=== PATIENT | male | born 1935 | race Caucasian/White ===

== ENCOUNTER 2016-12-15 14:07 | Inpatient (IN) ==
[2016-12-15] MEDS ORDERED: NS 3,000 ML ONE (14:30)
[2016-12-15] MEDS ORDERED: CARDIZEM ONE (14:32)
[2016-12-15 14:50] LABS: BASO% 0.4 % (0.0-0.8); EOS# 0.19 X1000 (0.0-0.7); EOS% 1.4 % (0.0-10.0); HEMATOCRIT 38.5 % (42.0-52.0); HEMOGLOBIN 12.8 g/dL (14.0-18.0); IMM GRAN# 0.05 X1000 (0.0-0.04); IMM GRAN% 0.4 % (0.0-0.5); LYMPH# 1.13 X1000 (1.2-3.4); LYMPH% 8.4 % (20.5-51.1); MANUAL DIFF NEEDED? NO; MCH 32.7 PG (27-31); MCHC 33.2 g/dL (33-37); MCV 98.5 FL (81-99); MONO# 0.92 X1000 (0.11-0.59); MONO% 6.8 % (1.7-9.3); NEUT% 82.6 % (42.2-75.2); PLT 314 X1000 (130-400); RBC 3.91 XMIL (4.7-6.1)
--- NOTE | 2016-12-15 14:52 | Diag Imaging Result Document ---
PROCEDURE NAME: HEAD W/O CONTRAST - 12/15/2016 CT BRAIN WITHOUT CONTRAST. TECHNIQUE: Dose reduction protocol. FINDINGS: No parenchymal hemorrhage. No epidural or subdural hematoma. No subarachnoid hemorrhage. Old left parietal infarct. There is atrophy with chronic microvascular ischemic changes. No mass identified on this noncontrasted exam. No sinus opacification. IMPRESSION: 1. No hemorrhage. 2. Atrophy with chronic microvascular ischemic changes with an old left parietal infarct. A preliminary report was given at 2:24 p.m.
[2016-12-15 15:00] LABS: INR 1.03; PROTIME 10.8 Seconds (9.2-11.7); PTT 23.3 Seconds (22.0-36.0)
[2016-12-15 15:15] LABS: AGAP 20; ALBUMIN 3.7 g/dL (3.5-5.0); ALKALINE PHOSPHATASE 63 U/L (32-122); BUN 11 mg/dL (8-22); CALCIUM 8.9 mg/dL (8.8-10.2); CHLORIDE 99 mmol/L (98-107); CK PROFILE 66 U/L (24-204); COSMO 286; DIRECT BILIRUBIN < 0.20 mg/dL (0.00-0.20); GOT 32 U/L (10-34); GPT 16 U/L (10-44); POTASSIUM 3.6 mmol/L (3.5-5.1); SODIUM 143 mmol/L (136-145); TCO2 24 mmol/L (25-35); TOTAL BILIRUBIN 0.26 mg/dL (0.20-1.00)
[2016-12-15 15:31] LABS: URINE MICRO REVIEW NEEDED? NO; URINE SOURCE CATH
[2016-12-15 15:37] LABS: BILIRUBIN URINE NEGATIVE (NEGATIVE); BLOOD URINE NEGATIVE (NEGATIVE); COLOR YELLOW; GLUCOSE URINE NEGATIVE (NEGATIVE); LEUKOCYTES URINE NEGATIVE (NEGATIVE); NITRITE URINE NEGATIVE (NEGATIVE); PROTEIN URINE 30 mg/dL (NEGATIVE); SP GRAVITY URINE 1.014; TURBIDITY URINE CLEAR (CLEAR); UR EPITHELIAL CELLS <10 /HPF (<10); URINE BACTERIA NEGATIVE /HPF; URINE RBC <10 /HPF (<10); URINE WBC <10 /HPF (<10); UROBILINOGEN URINE NORMAL (NORMAL)
[2016-12-15 15:50] LABS: UR AMPHETAMINES QUAL NONE DETECTED (NONE DETECT); UR BARBITUATES QUAL NONE DETECTED (NONE DETECT); UR BENZODIAZEPIN QUAL NONE DETECTED (NONE DETECT); UR CANNABINOIDS QUAL NONE DETECTED (NONE DETECT); UR COCAINE QUAL NONE DETECTED (NONE DETECT); UR METHADONE QUAL NONE DETECTED (NONE DETECT); UR OPIATES QUAL NONE DETECTED (NONE DETECT); UR OXYCODONE QUAL NONE DETECTED (NONE DETECT); UR PCP QUAL NONE DETECTED (NONE DETECT)
--- NOTE | 2016-12-15 16:15 | Diag Imaging Result Document ---
PROCEDURE NAME: CHEST-PORTABLE - 12/15/2016 PORTABLE CHEST: COMPARISON: No comparison films. FINDINGS: The lungs are well expanded. Heart is not enlarged. The vessels are not distended. No pneumonia. There are bilateral pleural plaques. No pleural effusions identified. Longstanding arthritic changes to each shoulder. IMPRESSION: No acute abnormality.
[2016-12-15] MEDS ORDERED: NS 1,000 ML IV ONE ×2 (16:16→17:13)
[2016-12-15] MEDS ORDERED: NS 500 ML IV ONE (17:13)
[2016-12-15] MEDS ORDERED: LEVAQUIN 750 MG/D5W 750 MG/150 ML IVPB IV ONE (17:18)
[2016-12-15] MEDS ORDERED: VANCOMYCIN 1 GM/NS 1 GM/250 ML IVPB IV ONE (17:18)
--- NOTE | 2016-12-15 17:41 | PROVIDER DOCUMENTATION ---
This chart was entered by Mar Rob Scribe, acting as scribe for Marty Lyman MD. HPI-Respiratory General - General Chief Complaint: Altered Mental Status Stated Complaint: possible CVA Time Seen by Provider: 12/15/16 14:40 Source: patient Allergies/Adverse Reactions: Patient Allergies Allergy/AdvReac Type Severity Reaction Status Date / Time Penicillins Allergy Unknown Verified 12/15/16 17:17 Home Medications: Home Medication List Medication Instructions Recorded Confirmed Last Taken Type Aspirin EC 81 mg PO DAILY 12/15/16 12/15/16 Unknown History Carbamazepine 200 mg PO QHS 12/15/16 12/15/16 Unknown History Carbamazepine 300 mg PO QAM 12/15/16 12/15/16 Unknown History Carvedilol 25 mg PO BID 12/15/16 12/15/16 Unknown History Docusate Sodium 200 mg PO BID 12/15/16 12/15/16 Unknown History Furosemide 40 mg PO DAILY 12/15/16 12/15/16 Unknown History Iron Carbonyl/Ascorbic Acid 1 each PO DAILY 12/15/16 12/15/16 Unknown History [Icar-C] Levothyroxine [Synthroid] 25 microgm PO DAILY 12/15/16 12/15/16 Unknown History Lisinopril 5 mg PO DAILY 12/15/16 12/15/16 Unknown History Multivitamins/Minerals [Centrum 1 each PO DAILY 12/15/16 12/15/16 Unknown History Silver] Pantoprazole [Protonix] 40 mg PO DAILY@0700 12/15/16 12/15/16 Unknown History Pentoxifylline 400 mg PO DAILY 12/15/16 12/15/16 Unknown History Potassium 99 mg PO DAILY 12/15/16 12/15/16 Unknown History Prednisone 20 mg PO BID 12/15/16 12/15/16 Unknown History Simvastatin 40 mg PO DAILY 12/15/16 12/15/16 Unknown History - History of Present Illness-Resp Nature of Presenting Problem: Pt is a 81 yom who came to the ED with a cc of falling out. Pt was working with his family on a side walk when he said "Honey I'm going down" his caught him. Pt was complaining of being short of breath. Pt is now unresponsive. Quality of Pain: reports: none Onset/Duration: reports: just prior to arrival Timing: reports: still present Associated Symptoms: reports: dizziness, short of breath Similar Symptoms Previously?: No Recently seen or treated by another doctor?: No Review of Systems - Adult - REVIEW OF SYSTEMS - ADULT ROS:: unobtainable per condition Constitutional: reports: no symptoms reported Eyes: reports: no symptoms reported Ears, Nose, Mouth & Throat: reports: no symptoms reported Cardiovascular: reports: no symptoms reported Respiratory: reports: no symptoms reported Gastrointestinal: reports: no symptoms reported Genitourinary: reports: no symptoms reported Musculoskeletal: reports: no symptoms reported Integumentary: reports: no symptoms reported Neurological: reports: no symptoms reported Psychiatric: reports: no symptoms reported Endocrine: reports: no symptoms reported Hematologic/Lymphatic: reports: no symptoms reported Allergic/Immunologic: reports: no symptoms reported All Other Systems: Reviewed and Negative Past History - Adult - PAST MEDICAL HISTORY-ADULT Review of Records: reports: Nursing Assessment Review Major Childhood Illnesses: reports: denies history Cardiovascular: reports: CHF, HTN, hyperlipidemia Respiratory: reports: COPD Gastrointestinal: reports: denies history Obstetrical/Gynecological: reports: denies history Genitourinary: reports: denies history Musculoskeletal: reports: denies history 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 Endocrine/Immune: reports: thyroid disorder Other Conditions: reports: denies history - IMMUNIZATION STATUS Childhood Immunizations: See Nurse Assessment Flu Vaccine: See Nurse Assessment - SOCIAL HISTORY Smoking: quit greater than 1 year Physical Exam-General - PHYSICAL EXAM-ADULT Initial Vital Signs Reviewed: Yes - CONSTITUTIONAL General Appearance: obtunded - CARDIOVASCULAR Cardiovascular: normal peripheral pulses, regular rate, rhythm - MUSCULOSKELETAL Extremity: other (unresponsive) - NEUROLOGIC Neurologic: facial droop (right side) Progress - PLAN OF CARE/RESULTS Progress/Plan/Lab Results: Vital Signs - 8 hr 12/15/16 14:41 12/15/16 15:09 12/15/16 16:06 Temperature 97.4 F L Pulse Rate 131 H 107 H Respiratory Rate 18 24 Blood Pressure 107/57 110/63 O2 Sat by Pulse Oximetry 100 97 Laboratory Results - last 24 hr 12/15/16 12/15/16 12/15/16 14:22 14:22 14:22 WBC 13.53 H RBC 3.91 L Hgb 12.8 L Hct 38.5 L MCV 98.5 MCH 32.7 H MCHC 33.2 RDW Std Deviation 15.2 H Plt Count 314 MPV 10.0 Immature Gran % (Auto) 0.4 Neut % (Auto) 82.6 H Lymph % (Auto) 8.4 L [place] % (Auto) 6.8 Eos % (Auto) 1.4 Baso % (Auto) 0.4 Immature Gran # (Auto) 0.05 H Neut # (Auto) 11.18 H Lymph # (Auto) 1.13 L [place] # (Auto) 0.92 H Eos # (Auto) 0.19 Baso # (Auto) 0.06 PT 10.8 INR 1.03 PTT (Actin FS) 23.3 Fibrinogen Sodium Potassium Chloride Carbon Dioxide Anion Gap BUN Creatinine Estimated GFR/1.73 m2 BUN/Creatinine Ratio Glucose Estimat Average Glucose 97 Hemoglobin A1c 5.0 Calculated Osmolality Calcium Total Bilirubin Direct Bilirubin AST ALT Alkaline Phosphatase Creatine Kinase Troponin T Total Protein Albumin Globulin Albumin/Globulin Ratio Triglycerides Cholesterol LDL Cholesterol Direct VLDL Cholesterol, Calc HDL Cholesterol Coronary Risk Interp Plasma Lactate Urine Source Urine Color Urine Turbidity Urine pH Ur Specific Babb Urine Protein Ur Glucose (Stick) Ur Ketones (Stick) Urine Blood Urine Nitrite Urine Bilirubin Urobilinogen Dipstick Urine Leukocytes Urine WBC (Auto) Urine RBC (Auto) U Epithel Cells (Auto) Urine Bacteria (Auto) Urine Opiates Screen Ur Oxycodone Screen Ur Methadone, Qual Ur Barbiturates Screen Ur Phencyclidine Scrn Ur Amphetamines Screen U Benzodiazepines Scrn Urine Cocaine Screen U Cannabinoids Screen Blood Type Antibody Screen 12/15/16 12/15/16 12/15/16 14:22 14:27 14:27 WBC RBC Hgb Hct MCV MCH MCHC RDW Std Deviation Plt Count MPV Immature Gran % (Auto) Neut % (Auto) Lymph % (Auto) [place] % (Auto) Eos % (Auto) Baso % (Auto) Immature Gran # (Auto) Neut # (Auto) Lymph # (Auto) [place] # (Auto) Eos # (Auto) Baso # (Auto) PT INR PTT (Actin FS) Fibrinogen 383.4 Sodium 143 Potassium 3.6 Chloride 99 Carbon Dioxide 24 L Anion Gap 20 BUN 11 Creatinine 1.1 Estimated GFR/1.73 m2 > 60 BUN/Creatinine Ratio 10 Glucose 126 H Estimat Average Glucose Hemoglobin A1c Calculated Osmolality 286 Calcium 8.9 Total Bilirubin 0.26 Direct Bilirubin < 0.20 AST 32 ALT 16 Alkaline Phosphatase 63 Creatine Kinase 66 Troponin T Total Protein 6.0 L Albumin 3.7 Globulin 2.3 Albumin/Globulin Ratio 1.6 Triglycerides Cholesterol LDL Cholesterol Direct VLDL Cholesterol, Calc HDL Cholesterol Coronary Risk Interp Plasma Lactate 3.3 H Urine Source Urine Color Urine Turbidity Urine pH Ur Specific Babb Urine Protein Ur Glucose (Stick) Ur Ketones (Stick) Urine Blood Urine Nitrite Urine Bilirubin Urobilinogen Dipstick Urine Leukocytes Urine WBC (Auto) Urine RBC (Auto) U Epithel Cells (Auto) Urine Bacteria (Auto) Urine Opiates Screen Ur Oxycodone Screen Ur Methadone, Qual Ur Barbiturates Screen Ur Phencyclidine Scrn Ur Amphetamines Screen U Benzodiazepines Scrn Urine Cocaine Screen U Cannabinoids Screen Blood Type Antibody Screen 12/15/16 12/15/16 12/15/16 14:27 14:27 14:32 WBC RBC Hgb Hct MCV MCH MCHC RDW Std Deviation Plt Count MPV Immature Gran % (Auto) Neut % (Auto) Lymph % (Auto) [place] % (Auto) Eos % (Auto) Baso % (Auto) Immature Gran # (Auto) Neut # (Auto) Lymph # (Auto) [place] # (Auto) Eos # (Auto) Baso # (Auto) PT INR PTT (Actin FS) Fibrinogen Sodium Potassium Chloride Carbon Dioxide Anion Gap BUN Creatinine Estimated GFR/1.73 m2 BUN/Creatinine Ratio Glucose Estimat Average Glucose Hemoglobin A1c Calculated Osmolality Calcium Total Bilirubin Direct Bilirubin AST ALT Alkaline Phosphatase Creatine Kinase Troponin T < 0.010 Total Protein Albumin Globulin Albumin/Globulin Ratio Triglycerides 136 Cholesterol 230 H LDL Cholesterol Direct 163 VLDL Cholesterol, Calc 27 HDL Cholesterol 54 Coronary Risk Interp 4.00 Plasma Lactate Urine Source Urine Color Urine Turbidity Urine pH Ur Specific Babb Urine Protein Ur Glucose (Stick) Ur Ketones (Stick) Urine Blood Urine Nitrite Urine Bilirubin Urobilinogen Dipstick Urine Leukocytes Urine WBC (Auto) Urine RBC (Auto) U Epithel Cells (Auto) Urine Bacteria (Auto) Urine Opiates Screen Ur Oxycodone Screen Ur Methadone, Qual Ur Barbiturates Screen Ur Phencyclidine Scrn Ur Amphetamines Screen U Benzodiazepines Scrn Urine Cocaine Screen U Cannabinoids Screen Blood Type O POSITIVE Antibody Screen NEGATIVE 12/15/16 12/15/16 15:30 15:30 WBC RBC Hgb Hct MCV MCH MCHC RDW Std Deviation Plt Count MPV Immature Gran % (Auto) Neut % (Auto) Lymph % (Auto) [place] % (Auto) Eos % (Auto) Baso % (Auto) Immature Gran # (Auto) Neut # (Auto) Lymph # (Auto) [place] # (Auto) Eos # (Auto) Baso # (Auto) PT INR PTT (Actin FS) Fibrinogen Sodium Potassium Chloride Carbon Dioxide Anion Gap BUN Creatinine Estimated GFR/1.73 m2 BUN/Creatinine Ratio Glucose Estimat Average Glucose Hemoglobin A1c Calculated Osmolality Calcium Total Bilirubin Direct Bilirubin AST ALT Alkaline Phosphatase Creatine Kinase Troponin T Total Protein Albumin Globulin Albumin/Globulin Ratio Triglycerides Cholesterol LDL Cholesterol Direct VLDL Cholesterol, Calc HDL Cholesterol Coronary Risk Interp Plasma Lactate Urine Source CATH Urine Color YELLOW Urine Turbidity CLEAR Urine pH 6.0 Ur Specific Babb 1.014 Urine Protein 30 A Ur Glucose (Stick) NEGATIVE Ur Ketones (Stick) NEGATIVE Urine Blood NEGATIVE Urine Nitrite NEGATIVE Urine Bilirubin NEGATIVE Urobilinogen Dipstick NORMAL Urine Leukocytes NEGATIVE Urine WBC (Auto) <10 Urine RBC (Auto) <10 U Epithel Cells (Auto) <10 Urine Bacteria (Auto) NEGATIVE Urine Opiates Screen NONE DETECTED Ur Oxycodone Screen NONE DETECTED Ur Methadone, Qual NONE DETECTED Ur Barbiturates Screen NONE DETECTED Ur Phencyclidine Scrn NONE DETECTED Ur Amphetamines Screen NONE DETECTED U Benzodiazepines Scrn NONE DETECTED Urine Cocaine Screen NONE DETECTED U Cannabinoids Screen NONE DETECTED Blood Type Antibody Screen Orders Category Date Time Status Neurological Check ORDERED Care 12/15/16 14:32 Active CHEST-PORTABLE [RAD] Stat Exams 12/15/16 14:32 Draft HEAD W/O CONTRAST [CT] Stat Exams 12/15/16 14:08 Completed A1C HGB W EST AVG GLUCOSE [CHEM] Stat Lab 12/15/16 14:22 Completed CBC WITH ELECTRONIC DIFF [HEME] Stat Lab 12/15/16 14:22 Completed CK PROFILE [SP CHEM] Stat Lab 12/15/16 14:27 Completed COMPREHENSIVE METABOLIC PANEL [CHEM] Stat Lab 12/15/16 14:27 Completed FIBRINOGEN [COAG] Stat Lab 12/15/16 14:22 Completed HEPATIC FUNCTION [CHEM] Stat Lab 12/15/16 14:27 Completed LACTATE, PLASMA [CHEM] Stat Lab 12/15/16 17:36 Ordered LACTATE, PLASMA [CHEM] Urgent Lab 12/15/16 14:27 Completed LIPID PROFILE W/DIR LDL [LIPIDS] Stat Lab 12/15/16 14:32 Completed PROTIME WITH INR [COAG] Stat Lab 12/15/16 14:22 Completed PTT [COAG] Stat Lab 12/15/16 14:22 Completed TROPONIN T Stat Lab 12/15/16 14:27 Completed TYPE & SCREEN [BBK] Stat Lab 12/15/16 14:27 Completed URINALYSIS [URINALYSIS] Stat Lab 12/15/16 15:30 Completed URINE DRUG SCREEN Stat Lab 12/15/16 15:30 Completed 0.9% Sodium Chloride Inj [Ns] 1,000 ml Med 12/15/16 14:30 Discontinued .ROUTE As Directed 0.9% Sodium Chloride Inj [Ns] 1,000 ml Med 12/15/16 16:16 Discontinued IV 999 mls/hr 0.9% Sodium Chloride Inj [Ns] 1,000 ml Med 12/15/16 17:13 Active IV 999 mls/hr 0.9% Sodium Chloride Inj [Ns] 500 ml Med 12/15/16 17:13 Active IV 999 mls/hr Diltiazem [Cardizem] Med 12/15/16 14:32 Discontinued 25 mg .ROUTE .STK-MED ONE Levofloxacin 750 mg/D5w [Levaquin 750 mg/D5w] Med 12/15/16 17:18 Active 750 mg in 150 ml IV NOW Vancomycin 1 gm/Ns Med 12/15/16 17:18 Active 1 gm in 250 ml IV NOW EKG [EKG] Stat Ther 12/15/16 14:32 Ordered Result Diagrams: 12/15/16 14:22 12/15/16 14:27 - XRAY 1 XRAY Study: Chest (no acute abnormality plural plaques) - CT/MRI 1 MRI Study: Head (no hemorrhage atrophy with chronic microvascular ischemic changes with an old left parietal infarct.) - CONSULTS/PCP/HOSPITALIST Notification #1 *Consult/PCP/Hospitalist*: Dr. Aguero Time Discussed: 17:36 (Dr. Aguero will be the pt PCP) Departure - Departure Time of Disposition Decision: 17:39 DIAGNOSIS: Altered mental status Disposition: ADMITTED INPATIENT 09 Certified Medical Emergency: Emergent Condition: Stable Referrals and Follow-Ups: Mike Green [Primary Care Provider] - Attestation - Physician/ CARLEE Attestation Patient care was provided by Advanced Practice Provider:: Yes Advanced Practice Provider documentation review:: The Mid-level provider documentation, treatment plan and medical decision making was reviewed by the physician who agrees with all treatment and medical decision making by the MLP. The physician spent face to face time with patient:: Yes Advanced Practice Provider documentation review:: The physician spent face to face time with this patient and agrees with all MLP documentation, treatment, and medical decision making by the MLP. See provider notes for further information. This chart was documented by the indicated scribe, (Mar Rob Scribe) and accurately reflects the services I performed and decisions made by Nura kirby Christophe I, MD, as attested by the provider's signature.
[2016-12-15] MEDS ORDERED: ADENOCARD ONE (17:56)
[2016-12-15] MEDS ORDERED: VERSED ONE (18:04)
[2016-12-15] MEDS ORDERED: CORDARONE 150 MG/D5W ONE (18:28)
[2016-12-15] MEDS ORDERED: MAGNESIUM SULFATE ONE (18:28)
[2016-12-15] MEDS ORDERED: CORDARONE ONE (18:28)
[2016-12-15] MEDS ORDERED: CORDARONE 150 MG/D5W 150 MG/100 ML IV.SOLN IV ONE (19:02)
[2016-12-15] MEDS ORDERED: TYLENOL PO PRN (19:02)
[2016-12-15] MEDS ORDERED: CORDARONE 360 MG/D5W 360 MG/200 ML IV.SOLN IV ONE (19:39)
[2016-12-15] MEDS: NS 1,000 ML IV SCH (20:08)
[2016-12-15] MEDS: LOVENOX SUBQ SCH (20:12)
[2016-12-15] MEDS ORDERED: COLACE PO SCH (21:00)
[2016-12-15] MEDS: COREG PO SCH (21:45)
[2016-12-15] MEDS: PREDNISONE PO SCH (21:45)
[2016-12-15] MEDS: TEGRETOL PO SCH (21:45)
[2016-12-16] MEDS ORDERED: CORDARONE 540 MG in D5W 289.2 ML IV ONE (02:00)
[2016-12-16] MEDS: SYNTHROID PO SCH (06:25)
[2016-12-16] MEDS: PROTONIX PO SCH (06:25)
[2016-12-16 06:31] LABS: MANUAL DIFF NEEDED? NO
[2016-12-16 06:59] LABS: AGAP 12; ALBUMIN 2.7 g/dL (3.5-5.0); ALKALINE PHOSPHATASE 52 U/L (32-122); BUN 9 mg/dL (8-22); CALCIUM 7.4 mg/dL (8.8-10.2); CHLORIDE 104 mmol/L (98-107); COSMO 280; GOT 20 U/L (10-34); GPT 14 U/L (10-44); MAGNESIUM 1.9 mg/dL (1.5-2.7); POTASSIUM 3.6 mmol/L (3.5-5.1); SODIUM 139 mmol/L (136-145); TCO2 23 mmol/L (25-35); TOTAL BILIRUBIN 0.18 mg/dL (0.20-1.00); TOTAL PROTEIN 5.3 g/dL (6.3-8.3)
--- NOTE | 2016-12-16 07:06 | Diag Imaging Result Document ---
PROCEDURE NAME: CHEST-PORTABLE - 12/16/2016 PORTABLE CHEST: COMPARISON: 12/15/2016. FINDINGS: The lungs are well expanded. The heart is not enlarged. No pleural effusion is identified. A granuloma is found in the lower right lung. I believe there are pleural plaques. Appearance of the chest is unchanged from the prior exam. IMPRESSION: Stable chest.
[2016-12-16 07:22] LABS: BASO% 0.3 % (0.0-0.8); HEMATOCRIT 32.5 % (42.0-52.0); HEMOGLOBIN 10.6 g/dL (14.0-18.0); IMM GRAN# 0.02 X1000 (0.0-0.04); IMM GRAN% 0.3 % (0.0-0.5); LYMPH% 12.2 % (20.5-51.1); MCH 32.4 PG (27-31); MCHC 32.6 g/dL (33-37); MCV 99.4 FL (81-99); MONO# 0.31 X1000 (0.11-0.59); MONO% 4.2 % (1.7-9.3); MPV 10.5 FL (7.4-10.4); PLT 268 X1000 (130-400); RBC 3.27 XMIL (4.7-6.1)
[2016-12-16] MEDS: NS 1,000 ML IV SCH ×2 (08:43→22:17)
[2016-12-16] MEDS: TEGRETOL PO SCH ×2 (08:44→20:21)
[2016-12-16] MEDS: TRENTAL PO SCH (08:45)
[2016-12-16] MEDS: LASIX PO SCH (08:45)
[2016-12-16] MEDS: CENTRUM SILVER PO SCH (08:45)
[2016-12-16] MEDS: ASPIRIN EC PO SCH (08:45)
[2016-12-16] MEDS: COREG PO SCH ×2 (08:45→20:22)
[2016-12-16] MEDS: POTASSIUM 99 MG PO SCH (08:46)
[2016-12-16] MEDS: LOVENOX SUBQ SCH ×2 (08:46→20:20)
[2016-12-16] MEDS: PREDNISONE PO SCH ×2 (08:47→20:22)
[2016-12-16] MEDS: NORCO-7.5 PO PRN ×3 (08:47→20:22)
--- NOTE | 2016-12-16 10:55 | PROGRESS NOTE ---
DATE: 12/16/2016 SUBJECTIVE: The patient is feeling better this morning. He denies having any fever or chills. Denies having any chest pain or palpitations. OBJECTIVE: Vital Signs: Blood pressure 128/60, pulse of 79, respirations 20, temperature 98.6 degrees, saturations of 100% on 2 L nasal cannula. General Appearance: An elderly, white male in no acute distress. HEENT: Anicteric sclerae. Clear conjunctivae. Neck: Supple. No JVD. No bruit. Cardiovascular: S1 and S2. Normal rate and rhythm. No murmur, rubs, or gallops. Pulmonary: Clear to auscultation bilaterally. GI: Soft, nontender, nondistended. Normoactive bowel sounds. Musculoskeletal: No clubbing, cyanosis, or edema. Laboratory: Sodium 139, potassium of 3.6, chloride 104, bicarb 23, BUN 9, creatinine 0.7, glucose of 165. Troponins have been negative so far. ASSESSMENT AND PLAN: This is an 81-year-old, white male admitted to the hospital for dizziness and lightheadedness, and was found to have atrial fibrillation with rapid ventricular response as well as wide complex ventricular tachycardia. 1. Wide complex ventricular tachycardia. The patient was loaded with 150 mg of amiodarone and has been on an amiodarone drip. His rate has been well controlled. He is on 40 of Lovenox. 2. Atrial fibrillation. The patient is still in atrial fibrillation but rate is well controlled. We kept him on the Coreg that he was on at home. 3. Questionable history of seizure disorder. We will continue his Tegretol. The family was not aware that the patient was having it. However, he was on no medication for it. 4. Peripheral vascular disease. We will continue with Trental. 5. Deep vein thrombosis prophylaxis. The patient is on Lovenox. 6. Code status. The patient is a full code.
--- NOTE | 2016-12-16 18:49 | CONSULTATION ---
DATE OF CONSULTATION: 12/16/2016 IMPRESSIONS: 1. Syncope. 2. Wide complex tachycardia, possibly atrial fibrillation with rapid ventricular rate and aberrancy but cannot entirely exclude ventricular tachycardia. 3. Paroxysmal atrial fibrillation. 4. Severe aortic stenosis. 5. Peripheral vascular disease with history of previous left carotid endarterectomy. 6. Colon mass, deemed not resectable as patient had significant aortic stenosis. Details not available. 7. History of gastrointestinal bleed requiring transfusion. On long-term anticoagulation with warfarin. 8. Hypertension. RECOMMENDATIONS: 1. Aggressively suppress atrial fibrillation with amiodarone. 2. Continue antiplatelet therapy with aspirin. 3. Need to obtain and review details regarding patient's colon mass as this will dictate level of aggressiveness and his cardiovascular management. HISTORY OF PRESENT ILLNESS: This 81-year-old white male with history of paroxysmal atrial fibrillation, aortic stenosis, hypertension, and colon mass was admitted to the emergency room yesterday after an episode of syncope. He was helping nail boards down on a porch with his family. He has actually seated. He had actually been feeling well yesterday morning. He suddenly became lightheaded and passed out. EMS was summoned. He was found to be in wide complex tachycardia. He spontaneously awoke. He has been started on intravenous amiodarone and as his heart rate decreased atrial fibrillation with rapid ventricular rate became apparent. He is presently without chest discomfort or dyspnea. He does recall some episodes of lightheaded spells over the last several weeks. He has a past history of paroxysmal atrial fibrillation and was on warfarin for 6 or 7 years. Warfarin was discontinued due to problems with GI blood loss requiring transfusion. In the last few months he has had a GI evaluation and has been found to have a colon mass. Details are not completely available. 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 His son indicates that he had a PET scan that showed an abnormality in his abdomen and for this reason, he had further evaluation with colonoscopy which disclosed the mass. Surgical resection was recommended. However, he had a murmur noted and preoperative cardiology evaluation was obtained. It was recommended that he not have elective surgery and this presumably was related to the discovery of severe aortic stenosis. On a day-to- day basis he does not have any chest discomfort or dyspnea. He has no prior known history of coronary disease but does have history of previous left carotid endarterectomy. PAST MEDICAL HISTORY: 1. Paroxysmal atrial fibrillation. 2. Aortic stenosis. 3. Hypertension. 4. Colon mass. 5. History of gastrointestinal bleeding, on warfarin. 6. Peripheral neuropathy. PAST SURGICAL HISTORY: Includes left carotid endarterectomy, 2 previous back surgeries, cholecystectomy, splenectomy for unknown reasons, and left orchiectomy for mass which proved not to be cancer. MEDICATIONS: Prior to admission as listed. SOCIAL HISTORY: He does not smoke or use alcohol. He lives with his son and his . FAMILY HISTORY: Negative for premature coronary disease. REVIEW OF SYSTEMS: Pulmonary: Negative. Gastrointestinal: Noncontributory beyond history of present illness. Constitutional: Negative. Remainder of review of systems negative/noncontributory beyond history present illness with 14 total systems reviewed. PHYSICAL EXAMINATION: General: This is an elderly white male, in no distress. Vital Signs: As recorded are stable. ECG monitor now shows sinus rhythm on intravenous amiodarone. HEENT Exam: Extraocular movements intact. Mucous membranes moist. Neck: Supple without jugular venous distention. There are no carotid bruits. Left carotid endarterectomy scar is present. Chest: Clear to auscultation. Cardiac Exam: Was a regular rate and rhythm with a grade 2 to 3/6 crescendo/decrescendo systolic murmur at the right upper sternal border and apex. The second heart sound is difficult to hear. Gallop could not be appreciated. Abdomen: Soft, nontender. Bowel sounds normal. Extremities: Without edema. Neurologic: Reveals him to be alert, fully oriented. Speech is fluent. Moves all 4 extremities equally well. Skin: Warm and dry. Psychiatric: Reveals mood to be appropriate. LAB REVIEW: Initial ECG yesterday afternoon demonstrates atrial fibrillation with rapid ventricular rate, right bundle branch block, and Left posterior fascicular block. ECG obtained yesterday evening demonstrates wide complex tachycardia. Probable atrial fibrillation with aberrancy but cannot exclude ventricular tachycardia. ECG monitor currently shows sinus rhythm. cc: James Zamudio MD
[2016-12-16] MEDS: ZOCOR PO SCH (20:21)
[2016-12-16] MEDS ORDERED: CORDARONE PO ONE (21:37)
[2016-12-16] MEDS: CORDARONE PO SCH (22:16)
--- NOTE | 2016-12-17 02:26 | ECHO REPORT ---
ORDER DATE: 12/15/2016 MEASUREMENTS: Left ventricular end-diastolic diameter 4.4, end-systolic diameter 1.9. Posterior wall thickness 1.1, septal thickness 1.2. Left atrium 4.8, aortic root 2.8. SUMMARY: 1. Fair quality study, with somewhat limited parasternal acoustic windows. 2. Fibrocalcific changes of aortic valve demonstrated, with reduced aortic valve leaflet mobility. Peak instantaneous gradient across the aortic valve is 65-70 mmHg, with a mean gradient of 40 mmHg. Using continuity equation and assumed LV outflow tract diameter of 2.0 cm, the calculated aortic valve area is 0.6-0.7 cm2, suggesting severe aortic stenosis. There is mild aortic regurgitation. Ofsj-el-[id number] mitral annular calcification is demonstrated. There is mild mitral regurgitation. Tricuspid and pulmonic valves are without structural abnormality, with mild tricuspid regurgitation. The estimated systolic PA pressure by Doppler is 35 mmHg. Aortic root is normal in size. 3. Normal left ventricular chamber size, with mild concentric left hypertrophy is demonstrated. Estimated left ventricular ejection fraction approximately 75%, without regional wall motion abnormality evident. The left atrium is myma-lo-tprvlyoxij enlarged. The right atrium and right ventricle are normal in size, with preserved right ventricular systolic performance. 4. No pericardial effusion. 5. Appearance of the inferior vena cava suggests normal central venous pressure. CONCLUSIONS: 1. Severe calcific aortic stenosis, with mild aortic regurgitation. 2. Mild mitral regurgitation. 3. Mild tricuspid regurgitation, with estimated systolic PA pressure of 35 mmHg. 4. Mild concentric left hypertrophy, with estimated left ventricular ejection fraction 75%. 5. Haun-oc-hyqcejog left atrial enlargement. cc: James Zamudio MD
[2016-12-17] MEDS: ZOFRAN IV PRN (05:24)
--- NOTE | 2016-12-17 06:13 | EKG Report ---
Test Performed on : 12/15/2016 2:36:08 PM Test Reason : Re-Ordered/CVA Blood Pressure : / mmHG Vent. Rate : 148 BPM Atrial Rate : 500 BPM P-R Int : 000 ms QRS Dur : 140 ms QT Int : 324 ms P-R-T Axes : 000 116 -24 degrees QTc Int : 508 ms Atrial fibrillation. with rapid ventricular response. Right bundle branch block Left posterior fascicular block Bifascicular block Cannot rule out Inferior infarct , age undetermined Abnormal ECG No previous ECGs available Unconfirmed Result
[2016-12-17 07:08] LABS: MANUAL DIFF NEEDED? NO
[2016-12-17 07:30] LABS: AGAP 12; BUN 10 mg/dL (8-22); CALCIUM 7.9 mg/dL (8.8-10.2); CHLORIDE 108 mmol/L (98-107); COSMO 290; POTASSIUM 4.1 mmol/L (3.5-5.1); SODIUM 146 mmol/L (136-145); TCO2 26 mmol/L (25-35)
[2016-12-17 07:32] LABS: BASO% 0.1 % (0.0-0.8); HEMATOCRIT 34.4 % (42.0-52.0); HEMOGLOBIN 11.1 g/dL (14.0-18.0); LYMPH# 0.95 X1000 (1.2-3.4); LYMPH% 13.9 % (20.5-51.1); MCH 32.3 PG (27-31); MCHC 32.3 g/dL (33-37); MONO# 0.35 X1000 (0.11-0.59); MONO% 5.1 % (1.7-9.3); MPV 10.3 FL (7.4-10.4); NEUT% 80.9 % (42.2-75.2); PLT 288 X1000 (130-400); RBC 3.44 XMIL (4.7-6.1)
--- NOTE | 2016-12-17 07:43 | EKG Report ---
Test Performed on : 12/15/2016 6:03:24 PM Test Reason : possible CVA Blood Pressure : / mmHG Vent. Rate : 127 BPM Atrial Rate : 141 BPM P-R Int : 000 ms QRS Dur : 154 ms QT Int : 330 ms P-R-T Axes : 000 113 -19 degrees QTc Int : 479 ms Atrial fibrillation. with rapid ventricular response. with premature ventricular or aberrantly condu cted complexes. Right bundle branch block Left posterior fascicular block Bifascicular block Cannot rule out Inferior infarct (cited on or before 15-DEC-2016) Abnormal ECG When compared with ECG of 15-DEC-2016 14:36, (Unconfirmed) No significant change was found Unconfirmed Result
--- NOTE | 2016-12-17 07:43 | EKG Report ---
Test Performed on : 12/15/2016 6:04:42 PM Test Reason : possible CVA Blood Pressure : / mmHG Vent. Rate : 182 BPM Atrial Rate : 178 BPM P-R Int : 000 ms QRS Dur : 110 ms QT Int : 244 ms P-R-T Axes : 000 223 097 degrees QTc Int : 424 ms Supraventricular tachycardia. with premature supraventricular complexes. Possible Lateral infarct (cited on or before 15-DEC-2016) Inferior-posterior infarct (cited on or before 15-DEC-2016) ACUTE HI / STEMI Consider right ventricular involvement in acute inferior infarct Abnormal ECG When compared with ECG of 15-DEC-2016 18:04, (Unconfirmed) Previous ECG has undetermined rhythm, needs review Serial changes of evolving Lateral infarct present Serial changes of Inferior-posterior infarct present Unconfirmed Result
--- NOTE | 2016-12-17 07:43 | EKG Report ---
Test Performed on : 12/15/2016 6:07:12 PM Test Reason : possible CVA Blood Pressure : / mmHG Vent. Rate : 105 BPM Atrial Rate : 057 BPM P-R Int : 000 ms QRS Dur : 154 ms QT Int : 380 ms P-R-T Axes : 000 112 -23 degrees QTc Int : 502 ms Atrial fibrillation. with rapid ventricular response. with premature ventricular or aberrantly condu cted complexes. Right bundle branch block Left posterior fascicular block Bifascicular block Possible Inferior infarct (cited on or before 15-DEC-2016) Abnormal ECG When compared with ECG of 15-DEC-2016 18:04, (Unconfirmed) Significant changes have occurred Unconfirmed Result
[2016-12-17] MEDS: SYNTHROID PO SCH (07:49)
[2016-12-17] MEDS: PROTONIX PO SCH ×2 (07:49→20:27)
[2016-12-17] MEDS: LOVENOX SUBQ SCH ×2 (08:02→20:26)
[2016-12-17] MEDS: CENTRUM SILVER PO SCH (08:11)
[2016-12-17] MEDS: COREG PO SCH ×2 (08:12→20:28)
[2016-12-17] MEDS: TRENTAL PO SCH (08:12)
[2016-12-17] MEDS: CORDARONE PO SCH ×2 (08:12→20:27)
[2016-12-17] MEDS: ASPIRIN EC PO SCH (08:12)
[2016-12-17] MEDS: LASIX PO SCH (08:12)
[2016-12-17] MEDS: PREDNISONE PO SCH ×2 (08:12→20:28)
[2016-12-17] MEDS: POTASSIUM 99 MG PO SCH (08:13)
[2016-12-17] MEDS: TEGRETOL PO SCH ×2 (08:13→20:27)
--- NOTE | 2016-12-17 11:26 | PROGRESS NOTE ---
DATE: 12/17/2016 SUBJECTIVE: This patient is feeling much better. Today, his heart rate is controlled. He has no respiratory distress. Blood pressure is stable. He was able to get up and walk with the front wheeled walker without any problems. Family member is at the bedside, his son. OBJECTIVE: Vital Signs: Temperature 97.4 degrees, pulse 74, respiratory rate 18, blood pressure 157/89, oxygen saturation 100% on 2 L of nasal cannula. HEENT: Head normocephalic. No trauma. PERRLA. Neck: Supple. No JVD. No masses. Central trachea. Chest: Clear to auscultation. No wheezing. No rales. Cardiovascular: RRR. Systolic murmur. Abdomen: Soft, nontender, nondistended. No hepatosplenomegaly. Extremities: No edema. No clubbing. He has peripheral neuropathy, with pain with palpation at the level of the lower extremities. Neurological Examination: The patient is alert and oriented x3. He moves all 4 extremities and he has severe peripheral neuropathy at the level of the lower extremities with pain. Laboratory: WBC 6.8, hemoglobin 11.1, hematocrit 34.4, platelets 288,000. Sodium 146, potassium 4.1, chloride 108, bicarbonate 26, BUN 10, creatinine 0.8, glucose 99, and calcium 7.9. ASSESSMENT AND PLAN: 1. Syncope, likely related to wide complex tachycardia. At this moment, the rate is controlled. Cardiology department is following this patient and he is feeling better. I will transfer this patient to the medical floor. I will continue with amiodarone 400 mg by mouth twice a day scheduled. 2. Wide complex ventricular tachycardia, as above. 3. History of atrial fibrillation. We will continue with the same management for now. The rate is controlled. 4. Hypernatremia. I will stop the normal saline. This patient is feeling good. 5. Questionable history of seizure disorder. Continue with the same management. 6. Peripheral vascular disease. Continue with Trental. 7. Peripheral neuropathy. This patient has pain at the level of the lower extremities. We will continue to monitor. This is chronic. 8. Deep venous thrombosis prophylaxis. Continue with Lovenox. 9. Colon mass. I had a conversation with the son about this colon mass. Apparently, Dr. Reyes saw this patient before. I will consult him again to see what was the plan because they do not know. 10. Code status. This patient is full code. cc: Manuel Pappas MD
--- NOTE | 2016-12-17 14:03 | HISTORY AND PHYSICAL ---
PRIMARY CARE PHYSICIAN: Dr. Green, in [place]. GI DOCTOR: Dr. Reyes. CHIEF COMPLAINT: Tiredness, dizziness, lightheadedness and nearly faint. HISTORY OF PRESENT ILLNESS: The patient is an 81-year-old white male, with history of peripheral vascular disease, heart murmur, hypertension, hyperlipidemia, GI infection recently and hypothyroidism, who presented to the emergency room after he nearly fainted at home. His daughter- in-law caught him while he was on the porch helping her working. He has had a battery of lab work in the ER with a mildly elevated white count, but normal creatinine. We were called by the emergency room physician, to evaluate the patient for admission. When I saw the patient in the ER, he went into V-Tach, and quickly converted, and he went back into a wide complex V-Tach again, and just every time he when in it stayed a left longer. The patient was very symptomatic, but still was awake and alert. We were able to get his blood pressure. When he started having sustained ventricular tachycardia, we loaded him up with 150 mg of amiodarone, and started drip, and at the same time, we will also gave him 1 g of Mag sulfate, and his rate was under control, and blood pressure started going up. The patient's mentation is improving. On further history, the patient lives with his son. He recently saw Dr. Ford, who did a colonoscopy, and found that the patient has some infections, and a mass. The biopsy of the mass that was negative for any cancer, according to the family. Dr. Reyes put him on a laxative, and he started having diarrhea for the past week or so, and the family stated that he has become very irritable and mitchell recently as well, but no fever, no chills. No nausea or vomiting, just diarrhea. He denies having any chest pain, but he did report having palpitations. He denies having any PND or orthopnea. PAST MEDICAL HISTORY: 1. Hypertension. 2. Hyperlipidemia. 3. History of peripheral vascular disease. 4. History of a leaky valve. 5. Denies having a history of seizure, but he is taking seizure medication. 6. History of AFib and was on Warfarin, but he had a GI bleed, so it was stopped. PAST SURGICAL HISTORY: 1. He has had a left endarterectomy. 2. Back surgery x2. 3. Splenectomy. 4. Cholecystectomy. 5. Left testicle removed. ALLERGIES: The patient is allergic to penicillin. SOCIAL HISTORY: The patient lives at home with his son for the past 15 years. He quit smoking about 3 years ago, but according to his son who caught him smoking since recently. The patient is a . No alcohol. No drugs. MEDICATIONS: 1. Aspirin 81 mg p.o. daily. 2. Tegretol 20 mg at bedtime and 300 mg in the morning. 3. Coreg 25 mg b.i.d. 4. Colace 200 mg p.o. daily. 5. Lasix 40 mg p.o. daily. 6. Iron with vitamin C 1 tablet p.o. daily. 7. Synthroid 25 mcg p.o. daily. 8. Lisinopril 5 mg p.o. daily. 9. Multivitamin 1 tablet p.o. daily. 10. Protonix 40 mg p.o. daily. 11. Pentoxifylline 400 mg p.o. daily. 12. Potassium 99 mg daily. 13. Prednisone 20 mg b.i.d. 14. Simvastatin 40 mg p.o. daily. REVIEW OF SYSTEMS: Twelve systems were reviewed and were negative, except for what mentioned under HPI. PHYSICAL EXAM: VITAL SIGNS: His blood pressure 134/74, pulse of 107, respirations 22, temperature of 97.4, sat of 100% on a non-rebreather. GENERAL APPEARANCE: Elderly white male, in moderate distress. HEENT: Anicteric sclerae. Clear conjunctivae. NECK: Supple. No JVD. No bruit. CARDIOVASCULAR: Mildly tachycardic, irregular rate and rhythm. There is a murmur, but no gallop. LUNGS: Clear to auscultation bilaterally. GI: Soft, nontender, nondistended. Normoactive bowel sounds. MUSCULOSKELETAL: No clubbing, cyanosis, or edema. LABORATORY: PT/INR are within normal limits. Chemistry: Sodium 143, potassium 3.6, chloride 99, bicarb 24, BUN 11, creatinine 1.1, glucose 126. Liver function tests are within normal limits. His cholesterol 230, HDL 54. White count 13.53, hemoglobin 12.8, hematocrit of 38.5, platelets of 315,000. EKG: His multiple strips show wide complex ventricular tachycardia sustained, and now is just atrial fibrillation. Chest x-ray no abnormality. CAT scan of the brain was negative for any acute process. ASSESSMENT AND PLAN: This is an 81-year-old white male, admitted to the hospital for faint like symptoms and dizziness, for the past week and got worse within the past several days. He almost passed out today, caught by his [id number]. 1. Sustained ventricular tachycardia. We loaded the patient with amiodarone 150 mg, and started him on the protocol of amiodarone drips. We will check his cardiac enzymes. We will get an echocardiogram. Consult Cardiology. The patient will probably need a cardiac catheterization. I will put him on full dose Lovenox. Aware that he has a history of GI bleed, but we will watch his hemoglobin and hematocrit carefully. He is in a grave condition within the next 24 hours, but we can't replace his blood if he happens to have a GI bleed. 2. Atrial fibrillation. This has been chronic for him, again has a GI bleed. He was taken off of warfarin over a year ago. He is on Coreg for rate control. 3. Hypothyroidism, continue his Synthroid for now. 4. Questionable history of seizures. The patient is on Tegretol. We will monitor the patient for now. We will resume his that Tegretol. 5. Hyperlipidemia, continue simvastatin. 6. Peripheral vascular disease. We will continue aspirin, cholesterol medication, and pentoxifylline. 7. DVT prophylaxis. The patient is on 40 of Lovenox. CODE STATUS: The patient is a DNR. TIME SPENT: Total critical care time on this patient is 80 minutes.
--- NOTE | 2016-12-17 18:31 | CONSULTATION ---
DATE OF CONSULTATION: 12/17/2016 DICTATING PHYSICIAN: Manuel Pappas MD PRIMARY CARE DOCTOR: Mike Green MD REASON FOR CONSULTATION: Large colon polyp discovered on previous colonoscopy. HISTORY OF PRESENT ILLNESS: Mr. Paige was admitted to the hospital on 12/15/2016 with symptoms of syncope and was diagnosed with wide complex tachycardia, atrial fibrillation with rapid ventricular response, severe aortic stenosis peripheral vascular disease, on Coumadin and is currently being managed by Dr. Zamudio. His rate has been controlled and he is currently on amiodarone drip. About 4 weeks ago on 11/14/2016, patient had outpatient EGD and colonoscopy for anemia which showed mild erosive gastritis and positive H. pylori and patient was given antibiotics for that. The patient is supposed to come back for outpatient breath test in 6 weeks. The colonoscopy on 11/14/2016 showed severe diverticulosis in the sigmoid, descending and rectosigmoid region. Internal hemorrhoids, grade 1 and multiple polyps in the transverse colon, descending colon, hepatic flexure. The patient had severe diverticulosis and we had to switch to EGD scope at that time and he was noted to have a large colon polyp, sessile in nature hepatic flexure which was tattooed. The biopsies of that polyp showed evidence of villous adenoma with high-grade dysplasia. The patient was referred at that time to [facility] for EMR, but the patient has not received a phone call or reply from [facility] yet. The package reinspector consulted immediate to that follow up at [facility]. PAST MEDICAL HISTORY: Paroxysmal atrial fibrillation, aortic stenosis, hypertension, anemia, multiple colon polyps, and a large polyp at the hepatic flexure. Peripheral neuropathy. History of GI bleeding. PAST SURGICAL HISTORY: Left carotid endarterectomy. Back surgery. Cholecystectomy. Splenectomy. Left orchiectomy. SOCIAL HISTORY: Denies history of smoking, alcohol. He lives with his son and his . FAMILY HISTORY: Noncontributory. Patient denies any current fevers, rigors, or chills. Denies any chest pain. He denies any orthopnea or paroxysmal nocturnal dyspnea. He denies any nausea, vomiting, vomiting blood, blood clot, passing blood in the stools. He denies any new genitourinary complaints. He does have history of arthritis in the legs and in the feet. Neurologic-merino, he denies any neurologic complaints, although he had a syncopal event at home. MEDICATIONS IN THE HOSPITAL: Tylenol, amiodarone, aspirin 81 mg a day, carbamazepine, Coreg, Lovenox, Lasix, hydrocodone/acetaminophen, Synthroid, multivitamin, IV fluids 75 mL per hour, Zofran, Protonix, pentoxifylline, potassium, prednisone 20 b.i.d., Zocor, amiodarone drip. MEDICATION ALLERGIES: Penicillin. PHYSICAL EXAMINATION: Vital signs: Temperature 98.5 degrees, pulse rate of 59, respiratory rate 18, blood pressure of 123/67, saturating 93% on room air. Body weight is 185 pounds. BMI 27.3 kg/m2. General: Moderately built, moderately nourished sitting in a chair, in the ICU bed 15. HEENT: Pale conjunctivae, no icterus. Pupils equal, react to light. Neck: Supple. Chest: Decreased in the bases. Cardiovascular: Regular rhythm, no murmur. Abdomen: Soft, mild discomfort periumbilical region, no rebound or guarding. Bowel sounds are present. Extremities: No cyanosis, clubbing. Mild lower extremity noted. He is sore in both legs. Neurologic: He is alert, awake, answers simple questions. LABORATORY: Hemoglobin and hematocrit is 11.1, 34.4, white count of 6.8, platelet count of 288,000, MCV of 100. Sodium 146, potassium 4.1, chloride 108, bicarb 26, anion gap 12, BUN of 10, creatinine 0.8, glucose of 99, calcium is 7.9, AST 20, ALT 14, alkaline phosphatase 52, total protein 5.3, albumin of 2.7, magnesium 1.9, total bilirubin is 0.18. Troponin is less than 0.01. Lactate of 1.5, INR 1.03. PT of 10.8, PTT 23.3. Urine positive protein, toxicology screen is negative. IMAGING: Head CT done on 12/15/2016, which showed no hemorrhage, atrophy with chronic microvascular ischemic changes with an old left parietal infarct. IMPRESSION AND PLAN: 1. Syncope secondary to atrial fibrillation with rapid ventricular response, being managed by Cardiology team. He is on a therapeutic dose of Lovenox. 2. Anemia. 3. Reflux disease and erosive gastritis. Positive H. pylori per last esophagogastroduodenoscopy done a month ago on 11/12/2016. 4. Severe diverticulosis in the left colon causing difficulty with passage of colonoscope and the esophagogastroduodenoscopy scope was able to pass. 5. Multiple colon polyps. 6. Large colon polyp, sessile in nature hepatic flexure which was tattooed and on histopathology showed evidence of sessile adenoma with high-grade dysplasia. 7. Constipation. RECOMMENDATIONS: 1. We will increase the patient's Protonix to twice daily to avoid any gastrointestinal bleeding if patient has prior history of H. pylori or erosive gastritis. 2. The patient will be started on MiraLAX twice daily as he has chronic constipation, diverticulosis and possibility of stricture in the left colon from severe diverticulosis. 3. We will need to be careful with anticoagulation as the patient has a prior history of gastrointestinal bleeding and anemia. In that regard, we will keep an eye on daily hemoglobin and hematocrit. 4. The patient on discharge will call my office. At that time, we will schedule him an outpatient follow with [facility] for endoscopic mucosal resection of the large right-sided/hepatic flexure polyp. 5. The patient will continue on gastroesophageal reflux life changes. 6. Above plan of care discussed with the patient and the family at bedside and all questions answered. cc: MD Manuel Arellano MD William D. Denney, MD Chad Mcelroy, MD
[2016-12-17] MEDS: MIRALAX PO SCH (20:27)
[2016-12-17] MEDS: ZOCOR PO SCH (20:28)
--- NOTE | 2016-12-18 01:05 | PROGRESS NOTE ---
DATE: 12/17/2016 SUBJECTIVE: Patient continues without chest discomfort or dyspnea. He remains in sinus rhythm. He is receiving amiodarone 40 mg twice daily to load him with amiodarone. OBJECTIVE: Vital Signs: Blood pressure 146/102, heart rate 73 and regular, oxygen saturation 98% on 2 L of oxygen per nasal cannula. Neck: There is no significant jugular venous distention. Chest: Clear to auscultation. Cardiac: Regular rate and rhythm, with a grade 2/6 crescendo/decrescendo systolic murmur at the right upper sternal border. There is no evidence of edema. DIAGNOSTIC DATA: Echocardiography demonstrates severe calcific aortic stenosis, with mild aortic regurgitation, mild mitral regurgitation, mild tricuspid regurgitation, mild concentric left hypertrophy, estimated left ejection fraction 75%, and [id number] left atrial enlargement. IMPRESSION: 1. Recent syncope, likely precipitated by atrial fibrillation with rapid ventricular rate, in the setting of severe aortic stenosis. Patient has spontaneously converted back to sinus rhythm. 2. Paroxysmal atrial fibrillation. 3. Severe aortic stenosis. 4. Peripheral vascular disease, with history of previous left carotid endarterectomy. 5. History of sessile colon polyp, with dysplastic features from a biopsy. 6. History of GI bleed, requiring transfusion in the past. 7. Hypertension. RECOMMENDATIONS: 1. Aggressively suppress atrial fibrillation with amiodarone. 2. Continue aspirin daily. 3. Anticoagulate as tolerated. 4. Severe aortic stenosis. 5. Patient high risk for perioperative cardiac complications with laparotomy and colectomy. cc: James Zamudio MD
[2016-12-18] MEDS: SYNTHROID PO SCH (06:16)
[2016-12-18 06:51] LABS: MANUAL DIFF NEEDED? NO
[2016-12-18 06:54] LABS: BASO% 0.1 % (0.0-0.8); HEMOGLOBIN 11.6 g/dL (14.0-18.0); LYMPH# 0.91 X1000 (1.2-3.4); LYMPH% 12.2 % (20.5-51.1); MCHC 32.2 g/dL (33-37); MCV 99.4 FL (81-99); MONO# 0.54 X1000 (0.11-0.59); MONO% 7.2 % (1.7-9.3); MPV 10.6 FL (7.4-10.4); NEUT% 80.5 % (42.2-75.2); PLT 278 X1000 (130-400); RBC 3.62 XMIL (4.7-6.1)
[2016-12-18 07:19] LABS: AGAP 12; BUN 13 mg/dL (8-22); CALCIUM 8.9 mg/dL (8.8-10.2); CHLORIDE 102 mmol/L (98-107); COSMO 283; POTASSIUM 3.6 mmol/L (3.5-5.1); SODIUM 142 mmol/L (136-145); TCO2 28 mmol/L (25-35)
[2016-12-18] MEDS: LOVENOX SUBQ SCH ×2 (08:18→21:15)
[2016-12-18] MEDS: MIRALAX PO SCH ×2 (08:49→21:13)
[2016-12-18] MEDS: TEGRETOL PO SCH ×2 (08:49→21:14)
[2016-12-18] MEDS: POTASSIUM 99 MG PO SCH (08:50)
[2016-12-18] MEDS: PROTONIX PO SCH ×2 (08:50→21:14)
[2016-12-18] MEDS: COREG PO SCH ×2 (08:51→21:14)
[2016-12-18] MEDS: LASIX PO SCH (08:51)
[2016-12-18] MEDS: CENTRUM SILVER PO SCH (08:52)
[2016-12-18] MEDS: CORDARONE PO SCH ×2 (08:52→21:13)
[2016-12-18] MEDS: PREDNISONE PO SCH ×2 (08:52→21:14)
[2016-12-18] MEDS: TRENTAL PO SCH (08:52)
[2016-12-18] MEDS: ASPIRIN EC PO SCH (08:53)
[2016-12-18] MEDS: ZOFRAN IV PRN ×2 (13:24→17:59)
--- NOTE | 2016-12-18 16:03 | PROGRESS NOTE ---
DATE: 12/18/2016 SUBJECTIVE: Mr. Paige had episode of lightheadedness/dizziness when he was placed up in a chair. Blood pressure and heart reportedly stable during this. His symptoms improved after he was placed back in bed. He is presently without any complaints. OBJECTIVE: Vital Signs: Blood pressure 120/56, heart rate 62 and regular. Neck: There is no significant JV distention. Chest: Clear to auscultation. Cardiac Exam: Was a regular rate and rhythm with grade 2/6 systolic murmur at the right upper sternal border. Abdomen: Soft, nontender. Extremities: Without edema. IMPRESSION: 1. Recent syncope likely precipitated by atrial fibrillation with rapid ventricular rate in the setting of severe aortic stenosis. 2. Paroxysmal fibrillation. 3. Severe aortic stenosis. 4. Peripheral vascular disease with history of previous left carotid endarterectomy. 5. 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 6. History of gastrointestinal bleed requiring transfusion in the past. 7. Hypertension. RECOMMENDATIONS: 1. Continue amiodarone 4 mg twice daily under hospital observation. 2. Reduce carvedilol to 12.5 mg twice daily. 3. Transfer to telemetry reasonable. cc: James Zamudio MD
--- NOTE | 2016-12-18 16:29 | PROGRESS NOTE ---
DATE: 12/18/2016 SUBJECTIVE: This patient is feeling much better. He has no specific complaints. He is not in respiratory distress. He denies nausea, vomiting, diarrhea, constipation. OBJECTIVE: Vital signs: Temperature 97.4, pulse 62, respiratory rate 12, blood pressure 159/73. Oxygen saturation 99% on 2 L of nasal cannula. HEENT: Head normocephalic. No trauma. PERRLA. Neck: Supple. No JVD. No masses. Central trachea. Chest: Clear to auscultation. No wheezing or rales. CARDIOVASCULAR: RRR. Systolic murmur. Abdomen: Soft. Nontender. Nondistended. No hepatosplenomegaly. Extremities: No edema. No clubbing or cyanosis. He has peripheral neuropathy with pain on palpation at the level of the lower extremities. Neurologic: The patient is alert and oriented x3. He moves all 4 extremities. He has severe peripheral neuropathy at the level of the lower extremities with pain. LABORATORY: WBC 7.4, hemoglobin 11.6, hematocrit 36, platelets 278. Sodium 142, potassium 3.6, chloride 102, bicarbonate 28, BUN 13, creatinine 0.8, glucose 91. Calcium 8.9. ASSESSMENT AND PLAN: 1. Syncope. This patient presented with atrial fibrillation/rapid ventricular response, probably wide complex tachycardia as well. At this moment the rate is controlled. Actually he converted spontaneously to sinus. Will continue with the same management, amiodarone. This patient has been transferred already to the medical floor pending a bed. 2. Wide complex ventricular tachycardia/atrial fibrillation with rapid ventricular response as above. 3. History of atrial fibrillation. Continue with the same management for now. The rate is controlled. He has been getting anticoagulation, Lovenox twice a day. Pending final recommendations for continued anticoagulation at home. 4. Hypernatremia, resolved. 5. Questionable history of seizure disorder. Continue with the same management. 6. Peripheral vascular disease. Continue with Trental. 7. Peripheral neuropathy. Will monitor. 8. DVT prophylaxis. Continue with Lovenox. 9. Large right-sided, hepatic flexure polyp. Upon discharge this patient should contact Dr. Reyes. Probably this patient needs to be scheduled for followup with [facility] for endoscopic removal of the polyp. CODE STATUS: FULL CODE. cc: Manuel Pappas MD
[2016-12-18] MEDS: ZOCOR PO SCH (21:14)
[2016-12-19 06:30] LABS: MANUAL DIFF NEEDED? NO
[2016-12-19] MEDS: SYNTHROID PO SCH (06:31)
[2016-12-19 06:50] LABS: BASO% 0.2 % (0.0-0.8); EOS# 0.01 X1000 (0.0-0.7); EOS% 0.2 % (0.0-10.0); HEMATOCRIT 35.7 % (42.0-52.0); HEMOGLOBIN 11.6 g/dL (14.0-18.0); LYMPH# 0.84 X1000 (1.2-3.4); LYMPH% 13.4 % (20.5-51.1); MCH 32.4 PG (27-31); MCHC 32.5 g/dL (33-37); MCV 99.7 FL (81-99); MONO# 0.41 X1000 (0.11-0.59); MONO% 6.6 % (1.7-9.3); MPV 10.5 FL (7.4-10.4); NEUT% 79.6 % (42.2-75.2); PLT 263 X1000 (130-400); RBC 3.58 XMIL (4.7-6.1)
[2016-12-19 06:56] LABS: AGAP 11; BUN 15 mg/dL (8-22); CALCIUM 8.6 mg/dL (8.8-10.2); CHLORIDE 101 mmol/L (98-107); COSMO 288; POTASSIUM 3.9 mmol/L (3.5-5.1); SODIUM 144 mmol/L (136-145); TCO2 32 mmol/L (25-35)
[2016-12-19] MEDS: ZOFRAN IV PRN ×2 (08:25→12:04)
[2016-12-19] MEDS: LOVENOX SUBQ SCH ×2 (09:50→21:12)
[2016-12-19] MEDS: TRENTAL PO SCH (09:51)
[2016-12-19] MEDS: MIRALAX PO SCH ×2 (09:51→21:13)
[2016-12-19] MEDS: CORDARONE PO SCH ×2 (09:51→21:13)
[2016-12-19] MEDS: PROTONIX PO SCH ×2 (09:51→21:13)
[2016-12-19] MEDS: ASPIRIN EC PO SCH (09:51)
[2016-12-19] MEDS: CENTRUM SILVER PO SCH (09:51)
[2016-12-19] MEDS: PREDNISONE PO SCH ×2 (09:51→21:13)
[2016-12-19] MEDS: POTASSIUM 99 MG PO SCH (09:51)
[2016-12-19] MEDS: LASIX PO SCH (09:51)
[2016-12-19] MEDS: TEGRETOL PO SCH ×2 (09:52→21:13)
[2016-12-19] MEDS: COREG PO SCH ×2 (10:05→21:13)
--- NOTE | 2016-12-19 11:33 | PROGRESS NOTE ---
DATE: 12/19/2016 SUBJECTIVE: Today, this patient is complaining of nausea but he received a dose of ondansetron and then he was able to eat. Yesterday, when they tried to transfer this patient from his bed to a chair, he became dizzy and nauseated as well. Cardiology department evaluated this patient and they decreased the dose of carvedilol. We will monitor. OBJECTIVE: Vital Signs: Temperature 97.6 degrees, pulse 57, respiratory rate 18, blood pressure 150/54, oxygen saturation 98 on 2 L of nasal cannula. HEENT: Head normocephalic. No trauma. PERRLA. Neck: Supple. No JVD. No masses. Central trachea. Chest: Clear to auscultation. No wheezing. No rales. Cardiovascular: RRR. Systolic murmur. Abdomen: Soft, nontender, nondistended. No hepatosplenomegaly. Extremities: No edema. No clubbing. No cyanosis. He has peripheral neuropathy with pain on palpation at the level of the lower extremities. Neurological Examination: This patient is alert and oriented x3. He moves all 4 extremities. He has severe peripheral neuropathy with pain at the level of the lower extremities. Laboratory: WBC 6.2, hemoglobin 11.6, hematocrit 35.7, platelets 263,000. Sodium 144, potassium 3.9, chloride 101, bicarbonate 32, BUN 15, creatinine 0.8, glucose 98, calcium 8.6. ASSESSMENT AND PLAN: 1. Syncope. This patient presented with atrial fibrillation/rapid ventricular response, probably with wide complex tachycardia as well. At this moment, the rate is controlled. Actually, he converted spontaneously to sinus rhythm. We will continue with the same management. Amiodarone. Yesterday, cardiology department decreased his dose of carvedilol. 2. Wide complex ventricular tachycardia/atrial fibrillation with rapid ventricular response, as above. 3. Severe aortic stenosis. Cardiology department is on board. I will continue following their recommendations. 4. History of atrial fibrillation. Continue with the same management for now. The rate is controlled. He has been getting anticoagulation, Lovenox twice a day, pending final recommendation for continued anticoagulation at home. 5. Hypernatremia, resolved. 6. Questionable history of seizure disorder. Continue with the same management. 7. Peripheral vascular disease. Continue with Trental. 8. Peripheral neuropathy. We will monitor. 9. Deep venous thrombosis prophylaxis. Continue with Lovenox. 10. Large right side hepatic flexure polyp. Upon discharge, this patient should contact Dr. Reyes. Probably, this patient needs to be scheduled for followup with the [facility] for endoscopy and removal of the polyp. 11. Code status. Full code. cc: Manuel Pappas MD
[2016-12-19] MEDS ORDERED: DULCOLAX PR ONE (12:55)
--- NOTE | 2016-12-19 19:43 | PROGRESS NOTE ---
DATE: 12/19/2016 SUBJECTIVE: Patient continues without chest discomfort or dyspnea on room air. OBJECTIVE: Vital Signs: Blood pressure 131/49, heart rate 59 and regular with ECG monitor showing sinus rhythm. Neck: There is no significant JV distention. Chest: Clear to auscultation. Cardiac examination: Regular rate and rhythm with a grade 2 to 3/6 systolic murmur at the right upper sternal border. No gallop could be appreciated. There is no evidence of edema. IMPRESSION: 1. Recent syncope likely precipitated by atrial fibrillation with rapid ventricular rate in the setting of severe aortic stenosis. 2. Paroxysmal atrial fibrillation. 3. Severe aortic stenosis. 4. Peripheral vascular disease with history of left carotid endarterectomy. 5. 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 6. History of GI bleeding requiring transfusion in the past. 7. Hypertension. RECOMMENDATIONS: 1. Continue amiodarone 400 mg twice daily. 2. Continue carvedilol 12.5 mg twice daily. 3. Reasonable to consider discharge to home in the next 24 hours if patient remains clinically stable. At discharge I would reduce amiodarone dose to 200 mg p.o. t.i.d. and arrange for close Cardiology followup in 1 week. 4. Agree with plan to have patient be seen by Gastroenterology at [facility] to see if sessile polyp can be removed without laparotomy. 5. If patient is fortunate and polyp can be removed, the patient may be considered for future TAVR procedure in the future. cc: James Zamudio MD
[2016-12-19] MEDS: ZOCOR PO SCH (21:13)
[2016-12-20] MEDS: SYNTHROID PO SCH (06:49)
[2016-12-20 07:33] LABS: AGAP 7; BUN 17 mg/dL (8-22); CHLORIDE 98 mmol/L (98-107); COSMO 287; SODIUM 143 mmol/L (136-145); TCO2 38 mmol/L (25-35)
[2016-12-20] MEDS: PROTONIX PO SCH (08:55)
[2016-12-20] MEDS: MIRALAX PO SCH (08:55)
[2016-12-20] MEDS: CORDARONE PO SCH (08:55)
[2016-12-20] MEDS: CENTRUM SILVER PO SCH (08:55)
[2016-12-20] MEDS: TEGRETOL PO SCH (08:56)
[2016-12-20] MEDS: PREDNISONE PO SCH (08:57)
[2016-12-20] MEDS: COREG PO SCH (08:57)
[2016-12-20] MEDS: LOVENOX SUBQ SCH (08:57)
[2016-12-20] MEDS: POTASSIUM 99 MG PO SCH (08:57)
[2016-12-20] MEDS: ASPIRIN EC PO SCH (08:57)
[2016-12-20] MEDS: LASIX PO SCH (08:57)
[2016-12-20] MEDS: TRENTAL PO SCH (08:57)
[2016-12-20 12:00] VITALS: BP 141/49
[2016-12-20] MEDS ORDERED: CORDARONE PO SCH (14:00)
--- NOTE | 2016-12-22 06:56 | DISCHARGE SUMMARY ---
ADMISSION DATE: 12/15/2016 DISCHARGE DATE: 12/20/2016 CONSULTATION: Dr. James Zamudio with Cardiology. PERTINENT PROCEDURES: 1. Head CT showed no hemorrhages. 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 2. Echocardiogram showed severe calcified aortic stenosis with mild aortic regurgitation. Mild mitral regurgitation. Mild tricuspid regurgitation. PA pressure 35 mmHg. Mild concentric left hypertrophy with an EF of 75%. [id number] left atrial enlargement. DISCHARGE DIAGNOSIS: 1. Syncope. The patient presented with atrial fibrillation with rapid ventricular rate with wide complex tachycardia as well. He is rate controlled and converted spontaneously to sinus rhythm. Continue on amiodarone and carvedilol has been increased by Cardiology. 2. Wide complex ventricular tachycardia. Atrial fibrillation with rapid ventricular rate. 3. Severe aortic stenosis. He will continue to follow closely with Cardiology. The patient could be considered for a transcatheter aortic valve replacement procedure in the future secondary to a polyp to be removed by sugar cane planter machine operator at [facility]. 4. 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 The patient will need to follow up with the sugar cane planter machine operator at [facility]. 5. Hyponatremia, resolved. 6. Questionable seizure disorder history. Continue medications. 7. Peripheral vascular disease. 8. Neuropathy. Continue to monitor. HOSPITAL COURSE: Mr. Paige is an 81-year-old male with a history of PVD, heart murmur, hypertension, hyperlipidemia, GI infection recently, hypothyroidism, who presented to the ED after he nearly fainted at home. His [id number] caught him while he was on the porch helping her work. He had a series of lab work done in the ED that showed a mildly elevated white count but normal creatinine. So, we were called for admission. Upon assessment , the patient went into ventricular tachycardia but quickly converted. He went into a wide complex ventricular tachycardia again. Each episode the patient stayed in it longer. He was very symptomatic but still wake and alert. He was loaded with 150 mg of amiodarone and started on a drip at the same time as well as given Mag sulfate. The patient was admitted with a cardiology consult. He underwent an echocardiogram that showed an EF of 75%. Dr. Zamudio suggested aggressively suppressing the atrial fibrillation with amiodarone, continue his anti-platelet therapy with aspirin. Also, on his echocardiogram he was shown to have a severe aortic stenosis. It has been agreed upon with the patient's history of a sessile colon polyp with dysplastic features from a biopsy that he be discharged and follow up with GI at [facility] to see if the polyp can be removed without laparotomy, and if the patient is fortunate and the polyp can be removed , then the patient will be considered for future TAVR procedure. The patient is being discharged home on amiodarone at 400 mg twice daily. His carvedilol has been reduced to 12.5 mg twice daily and, at the time of his discharge, they would like to reduce his amiodarone to 200 mg p.o. t.i.d. and arrange for close cardiology workup in 1 week. DISCHARGE DIET: Healthy heart. DISCHARGE MEDICATIONS: 1. Amiodarone 200 mg p.o. t.i.d. 2. Tylenol 650 q. 6 hours p.r.n. p.o. 3. Aspirin 81 mg p.o. daily. 4. Carbamazepine 300 mg p.o. q.a.m. 5. Coreg 12.5 mg p.o. q.12 hours. 6. Docusate sodium 200 mg p.o. b.i.d. 7. Lasix 40 mg p.o. daily. 8. [place] 7.5/325 p.o. q.4 hours p.r.n. pain. 9. Icar-C one each p.o. daily. 10. Synthroid 25 mcg p.o. daily. 11. Centrum Silver one each p.o. daily. 12. Protonix 40 mg p.o. daily. 13. Pentoxifylline 400 mg p.o. daily. 14. Potassium 99 mg p.o. daily. 15. Prednisone 20 mg p.o. b.i.d. 16. Simvastatin 40 mg p.o. daily. FOLLOWUP: The patient is being discharged home. He will need to follow up with his GI specialist at [facility], as well as Dr. Reyes in 2-[address] Zamudio in 1 week. The patient can return to the ED for any worsening of symptoms. DISCHARGE TIME: 30 minutes. Dictated by BINDU Caba for Manuel Pappas MD cc: MD Manuel Landeros MD MTDD
== END 2016-12-20 13:57 | disposition home or self-care (01) ==
LOC: ED 14:07 → 3N 17:51 → SUATTDRO 17:51 → ICU 18:33 → 3N 12-18 18:49
PROVIDERS: ATTEND Internal Medicine